=== PATIENT | male | born 1935 | race Caucasian/White ===

== ENCOUNTER 2020-06-16 21:05 | Emergency (ER) | payer MEDICARE, MEDICAID, SELFPAY ==
[2020-06-16] VITALS (33 sets, daily range): BP systolic 70–165; BP diastolic 48–111; PULSE 78–112; RESP 12–26; O2SAT 82–100; BMI 26.3
--- NOTE | 2020-06-16 21:07 | XR_ITS ---
WS: [id number] Exam: XR chest 1V portable [id number] Date/Time of Exam: 06/16/2020 9:19 PM Reason For Exam: Dyspnea No priors. Extensive areas of airspace and interstitial infiltrate noted throughout both lungs. Left-sided pleur al effusion. The heart is enlarged. The mediastinum and bony thorax are unremarkable. Monitoring lead s superimpose the chest. XR/XR chest 1V portable [id number] IMPRESSION: 1. Extensive interstitial and airspace infiltrates noted throughout both lungs. This most likely represents pneumonia. Superimposed CHF not totally excluded. 2. Small left-sided pleural effusion.
--- NOTE | 2020-06-16 21:09 | ECG_ITS ---
[facility] Test Date: 2020-06-16 Pat Name: DEE DEE CASTANO Department: Room: Gender: Male Audit Manager: : [id number] Requested By: Sharmin Ibrahim Order Number: [id number] Meek MD: CECILIA BHATIA Measurements Intervals [place] Rate: 101 P: 52 KS: 163 QRS: 85 QRSD: 103 T: 19 QT: 344 QTc: 446 Interpretive Statements SINUS TACHYCARDIA NONSPECIFIC ST & T-WAVE ABNORMALITY ABNORMAL RHYTHM ECG No previous ECG available for comparison Electronically Signed On 06-17-2020 21:05:01 CDT by CECILIA BHATIA [id number] f
--- NOTE | 2020-06-16 21:09 | W.ED.GENADLT ---
HPI - General Adult General: Chief complaint: Chest Pain Stated complaint: resp distress Time Seen by Provider: 06/16/20 21:07 Source: patient Mode of arrival: ambulatory Limitations: no limitations History of Present Illness: HPI narrative: Edvin is a 84-year-old male who brought in by EMS with report of shortness of breath. Patient received 5 mg of Versed in route and is a poor historian at this time. EMS reports that the patient complained of shortness of breath and upon their arrival there he had a pulse ox that was low and a heart rate that was fast. EMS felt that the heart rhythm was likely SVT but they were concerned as the morphology was wide-complex so the attempted chemical cardioversion with adenosine twice. First dose was 6 mg second dose was 12 mg. Because of no conversion and mild hypotension they cardioverted the patient. The patient was given 5 mg of Versed prior to cardioversion. Since then he has developed a sinus rhythm with improvement in his hypotension. Here the patient has audible wheezing and looks lethargic. The lethargy is believed to be from the Versed. Patient appears confused but follows commands and is cooperative and pleasant. Review of Systems General: Reports: ROS unobtainable due to medical condition (Previously medicated with Versed) [facility]: Medical History (Updated 06/17/20 @ 02:30 by Sharmin Benito) DM type 2 (diabetes mellitus, type 2) Physical Exam Const: COMMON NORMALS: alert EXAM LIMITATIONS: altered mental status GENERAL APPEARANCE: lethargic ORIENTATION/CONSCIOUSNESS: Yes lethargic HENMT: COMMON NORMALS: normocephalic, atraumatic, external ears normal, EAC's normal and Normal external nose present HEAD & SCALP: normal to inspection, normocephalic and atraumatic FACE & SINUS: normal facial exam and face symmetric NOSE: Normal external nose present and Normal nares present EXTERNAL EAR: Yes external ears normal EXTERNAL AUDITORY CANAL: EAC's normal MOUTH: Normal oral and palatal mucosa present, lip normal and tongue normal Eye: COMMON NORMALS: Equal, round and reactive pupils present and conjunctivae normal GENERAL EYE: appearance normal, both eyes and all related structures ALIGNMENT: Yes alignment normal PERIORBITAL: periorbital findings normal EYELID: eyelids normal CONJUNCTIVA: Yes conjunctivae normal SCLERA: sclerae normal PUPIL: Yes Equal, round and reactive pupils present Neck/C-Spine: COMMON NORMALS: full ROM, no lymphadenopathy, supple, no meningeal signs and no JVD GENERAL: Yes normal visual inspection and Yes trachea midline Chest: COMMONS NORMALS: normal inspection of the chest and normal palpation of entire chest wall Resp: EFFORT & INSPECTION: Yes Actively coughing AUSCULTATION: rales, rhonchi, wheezes and diminished lung sounds Cardio: COMMON NORMALS: no JVD, regular rhythm, S1 normal heart sound present and S2 normal heart sound present RATE: tachycardic RHYTHM: regular rhythm HEART SOUNDS: S1 normal heart sound present, S2 normal heart sound present, no click, no gallops, no murmurs and no rubs GI: COMMON NORMALS: Soft to palpation and No hepatosplenomegaly present PALPATION: Yes Soft to palpation, No Tenderness to palpation present (GI), No Guarding due to palpation present (GI), No Rigid due to palpation, Yes No hepatosplenomegaly present, No Hernia present, No Palpable mass present and No Pulsatile mass present : COMMON NORMALS: Yes no CVA tenderness BLADDER/KIDNEY EXAM: Yes no CVA tenderness Back/Pelvis: COMMON NORMALS: no CVA tenderness, thoracic and lumbar spine normal to inspection, no thoracic nor lumbar tenderness and thoraco-lumbar ROM normal Extremity: COMMON NORMALS: normal to inspection, full ROM, capillary refill normal, no joint enlargement, no clubbing, cyanosis or edema and no calf tenderness Neuro: COMMON NORMALS: CN's II-XII intact bilaterally, moves all extremities, no focal motor deficits and no sensory deficits noted SENSORIUM/ORIENTATION: Yes alert and Yes lethargic MENINGEAL SIGNS: Yes no meningeal signs SPEECH: speech normal Skin: COMMON NORMALS: no rashes or lesions noted, turgor normal, no jaundice, no petechiae and no mottling GENERAL SKIN EXAM: no rashes or lesions noted and turgor normal Procedures Central Line Placement Right Femoral: Time Out Performed: Yes (Indication was hypotension after intubation and vasopressors were utilized. Patient was intubated so consent cannot be obtained but was implied.) Patient Placed on Monitor/Pulse Ox: Yes MD Prep: mask, gown and gloves Central Line Prep: Povidone-Iodine 1%, Chlorhexidine scrub and sterile drapes applied Ultrasound Used for Placement: Yes (Used to locate vein and skin was marked. Ultrasound was not utilized dynamically but just for location of vein.) Central Line Lumen Inserted: triple Post Procedure: good blood return, all ports aspirated, flushed, capped and sterile dressing applied Patient Tolerated Procedure: well Complications: arterial puncture/cannulation Additional Comments: Once the needle accessed the vein there was dark nonpulsatile blood that slowly dribbled from the needle. Wire was fed through the vein with little resistance. Once the catheter was placed without difficulty I noticed persistent pressure of blood in the line. I had bedside ultrasound, and recheck placement and confirmed it was in the femoral artery. The line was immediately pulled and pressure was applied for 20 minutes. There was good pulse in both the DP and PT pulses of the right foot immediately after and 30 minutes after the line was pulled. Complication reviewed with both on-call surgery and cycle consultant interventional cardiology in both state nothing else is needed other than pressure for 20 minutes. Intubation Time out performed: Yes sedative: Etomidate Mg Given: 23 paralytic: Succinylcholine Mg Given: 125 Laryngoscope: fiber optic video scope ET Tube Size: 8 ET Tube Uncuffed: Yes Tube Secured Depth (cm): 27 Tube Secured Location: lips Tube Placement Confirmation: visualized tube passing through cords Patient Tolerated Procedure: well Intubation Complications: none Additional Comments: Chest x-ray confirmed good placement. Course Vital Signs: Vital signs: Vital Signs Pulse Rate 112 H 06/17/20 03:57 Respiratory Rate 16 06/17/20 03:57 Blood Pressure 109/59 06/17/20 03:57 Pulse Oximetry 94 06/17/20 03:57 MDM - General Adult MDM Narrative: Medical decision making narrative: The case was reviewed with Dr. Leonard who stated the patient is likely going to need a ventilator and we do not have the appropriate bed for a patient with COVID-19 to be on BiPAP. I reviewed the case with Dr. Lilly at the [facility] in [place], he agreed accept the patient in transfer. He agreed the patient would likely need intubation for safety when transferred. Patient was intubated without difficulty. His first blood gas post the patient revealed more so a metabolic acidosis but some element of respiratory acidosis. Ventilator changes were made repeat blood gas will be checked prior to the air ambulance service that is coming to pick him up. I did discuss with the patient the need for intubation he was agreeable. Lab Data: Labs: Lab Results 06/16/20 06/16/20 06/16/20 Range/Units 02:45 20:25 20:25 WBC (4.0-10.0) 10^3/ uL RBC (4.1-5.3) 10^6/u L Hgb (11.7-16.6) g/dL Hct (42.0-52.0) % MCV (80-94) fL MCH (28.0-34.0) pg MCHC (30.0-36.0) g/dL RDW (12.1-15.1) % Plt Count (130-400) 10^3/c mm MPV (7.4-10.4) fL Neut % (Auto) % Lymph % (Auto) % [place] % (Auto) % Eos % (Auto) % Baso % (Auto) % Neut # (Auto) (1.8-7.7) 10^3/u L Lymph # (Auto) (0.8-4.8) 10^3/u L [place] # (Auto) (0.2-0.9) 10^3/u L Eos # (Auto) (0.0-0.8) 10^3/u L Baso # (Auto) (0.0-0.1) 10^3/u L Nucleated RBC % (a uto) % Nucleated RBCs # /100WBC PT (12.1-14.9) SECO NDS INR (0.8-1.2) D-Dimer (0-0.59) ug/mIFE U Specimen Type Sample Site ABG pH (7.35-7.45) ABG pCO2 (35-45) mmHg ABG pO2 (80.0-100.0) mmH g ABG HCO3 (22-26) mmol/L ABG O2 Saturation ABG Base Excess (-2.0-2.0) mmol/ L Jarod Test A-a O2 Gradient (5-10) mmHg Hematocrit (42-52) % Hgb O2 Saturation (95-100) % Carboxyhemoglobin (0.4-20.1) %THgb Methemoglobin (0.4-1.5) % Total Hemoglobin (14-18) g/dL Ionized Calcium (1.1-1.4) mmol/L O2 Delivery Device O2 Liters/Min % FiO2 % PEEP cmH20 Burner Tender ID Sodium (136-145) mmol/L Potassium (3.5-5.1) mmol/L Chloride (98-107) mmol/L Carbon Dioxide (22-29) mmol/L Anion Gap (5-19) BUN (8-23) mg/dL Creatinine (0.7-1.2) mg/dL GFR Calculation Glucose (65-115) mg/dL Calculated Osmolal ity (285-295) mOsm/k g Lactic Acid (0.5-2.2) mmol/L Calcium (8.5-10.5) mg/dL Magnesium (1.7-2.3) mg/dL Total Bilirubin (0.15-1.2) mg/dL AST (0-40) U/L ALT (0-41) U/L Alkaline Phosphata se (40-130) IU/L Troponin T Baselin e (0-15) ng/L Troponin T 120 Min [place] 1294 H (0-15) ng/L Delta Troponin T Not Reportable NT-Pro-B Natriuret Pep (0-450) pg/mL Total Protein (6.6-8.7) g/dL Albumin (3.5-5.2) g/dL Globulin (1.3-4.6) g/dL Free T4 (0.82-1.77) ng/d L Urine Color (Yellow) Urine Appearance (CLEAR) Urine pH (5-7) Ur Specific Gravit y (1.005-1.030) Urine Protein (Negative) Urine Glucose (UA) (Normal) Urine Ketones (Negative) Urine Blood (Negative) Urine Nitrate (Negative) Urine Bilirubin (Negative) Urine Urobilinogen (Negative) mg/dL Ur Leukocyte Emilia ase (Negative) Urine RBC (0-2) /hpf Urine WBC (0-5) /hpf Ur Squamous Epith Cells (0-5) /hpf Amorphous Sediment Urine Bacteria (NONE) /hpf Hyaline Casts /lpf Fine Granular Cast s /lpf Coarse Granular Ca sts /lpf Influenza Type A A g Negative (Negative) Influenza Type B A g Negative (Negative) SARS-CoV-2 Ag (Rap id) Positive H (Negative) 06/16/20 06/16/20 06/16/20 Range/Units 21:11 21:11 21:11 WBC 11.6 H (4.0-10.0) 10^3/ uL RBC 4.27 (4.1-5.3) 10^6/u L Hgb 12.3 (11.7-16.6) g/dL Hct 39.2 L (42.0-52.0) % MCV 91.8 (80-94) fL MCH 28.8 (28.0-34.0) pg MCHC 31.4 (30.0-36.0) g/dL RDW 13.8 (12.1-15.1) % Plt Count 93 L (130-400) 10^3/c mm MPV 11.9 H (7.4-10.4) fL Neut % (Auto) 66.6 % Lymph % (Auto) 25.1 % [place] % (Auto) 5.1 % Eos % (Auto) 2.1 % Baso % (Auto) 0.5 % Neut # (Auto) 7.74 H (1.8-7.7) 10^3/u L Lymph # (Auto) 2.9 (0.8-4.8) 10^3/u L [place] # (Auto) 0.6 (0.2-0.9) 10^3/u L Eos # (Auto) 0.2 (0.0-0.8) 10^3/u L Baso # (Auto) 0.1 (0.0-0.1) 10^3/u L Nucleated RBC % (a uto) 0 % Nucleated RBCs # 0.0 /100WBC PT 14.10 (12.1-14.9) SECO NDS INR 1.06 (0.8-1.2) D-Dimer >= 20.00 H (0-0.59) ug/mIFE U Specimen Type Sample Site ABG pH (7.35-7.45) ABG pCO2 (35-45) mmHg ABG pO2 (80.0-100.0) mmH g ABG HCO3 (22-26) mmol/L ABG O2 Saturation ABG Base Excess (-2.0-2.0) mmol/ L Jarod Test A-a O2 Gradient (5-10) mmHg Hematocrit (42-52) % Hgb O2 Saturation (95-100) % Carboxyhemoglobin (0.4-20.1) %THgb Methemoglobin (0.4-1.5) % Total Hemoglobin (14-18) g/dL Ionized Calcium (1.1-1.4) mmol/L O2 Delivery Device O2 Liters/Min % FiO2 % PEEP cmH20 Burner Tender ID Sodium 137 (136-145) mmol/L Potassium 4.5 (3.5-5.1) mmol/L Chloride 101 (98-107) mmol/L Carbon Dioxide 19 L (22-29) mmol/L Anion Gap 21.5 H (5-19) BUN 29 H (8-23) mg/dL Creatinine 1.3 H (0.7-1.2) mg/dL GFR Calculation Not Reportable Glucose 342 H (65-115) mg/dL Calculated Osmolal ity 303 H (285-295) mOsm/k g Lactic Acid (0.5-2.2) mmol/L Calcium 9.5 (8.5-10.5) mg/dL Magnesium 2.1 (1.7-2.3) mg/dL Total Bilirubin 0.3 (0.15-1.2) mg/dL AST 38 (0-40) U/L ALT 38 (0-41) U/L Alkaline Phosphata se 107 (40-130) IU/L Troponin T Baselin e (0-15) ng/L Troponin T 120 Min [place] (0-15) ng/L Delta Troponin T NT-Pro-B Natriuret Pep 6262 H (0-450) pg/mL Total Protein 7.2 (6.6-8.7) g/dL Albumin 3.8 (3.5-5.2) g/dL Globulin 3.4 (1.3-4.6) g/dL Free T4 1.15 (0.82-1.77) ng/d L Urine Color (Yellow) Urine Appearance (CLEAR) Urine pH (5-7) Ur Specific Gravit y (1.005-1.030) Urine Protein (Negative) Urine Glucose (UA) (Normal) Urine Ketones (Negative) Urine Blood (Negative) Urine Nitrate (Negative) Urine Bilirubin (Negative) Urine Urobilinogen (Negative) mg/dL Ur Leukocyte Emilia ase (Negative) Urine RBC (0-2) /hpf Urine WBC (0-5) /hpf Ur Squamous Epith Cells (0-5) /hpf Amorphous Sediment Urine Bacteria (NONE) /hpf Hyaline Casts /lpf Fine Granular Cast s /lpf Coarse Granular Ca sts /lpf Influenza Type A A g (Negative) Influenza Type B A g (Negative) SARS-CoV-2 Ag (Rap id) (Negative) 06/16/20 06/16/20 06/16/20 Range/Units 21:11 21:17 21:54 WBC (4.0-10.0) 10^3/ uL RBC (4.1-5.3) 10^6/u L Hgb (11.7-16.6) g/dL Hct (42.0-52.0) % MCV (80-94) fL MCH (28.0-34.0) pg MCHC (30.0-36.0) g/dL RDW (12.1-15.1) % Plt Count (130-400) 10^3/c mm MPV (7.4-10.4) fL Neut % (Auto) % Lymph % (Auto) % [place] % (Auto) % Eos % (Auto) % Baso % (Auto) % Neut # (Auto) (1.8-7.7) 10^3/u L Lymph # (Auto) (0.8-4.8) 10^3/u L [place] # (Auto) (0.2-0.9) 10^3/u L Eos # (Auto) (0.0-0.8) 10^3/u L Baso # (Auto) (0.0-0.1) 10^3/u L Nucleated RBC % (a uto) % Nucleated RBCs # /100WBC PT (12.1-14.9) SECO NDS INR (0.8-1.2) D-Dimer (0-0.59) ug/mIFE U Specimen Type Arterial Sample Site Brachial, right ABG pH 7.37 (7.35-7.45) ABG pCO2 36.3 (35-45) mmHg ABG pO2 55.7 L (80.0-100.0) mmH g ABG HCO3 20.8 L (22-26) mmol/L ABG O2 Saturation 88.0 ABG Base Excess -4.1 L (-2.0-2.0) mmol/ L Jarod Test N/a A-a O2 Gradient 6.2 (5-10) mmHg Hematocrit 33.1 L (42-52) % Hgb O2 Saturation 84.5 L (95-100) % Carboxyhemoglobin 3.0 (0.4-20.1) %THgb Methemoglobin 1.0 (0.4-1.5) % Total Hemoglobin 10.8 L (14-18) g/dL Ionized Calcium 1.2 (1.1-1.4) mmol/L O2 Delivery Device Nrb O2 Liters/Min 15.0 % FiO2 % PEEP cmH20 Burner Tender ID [place] Sodium 138.0 (136-145) mmol/L Potassium 4.2 (3.5-5.1) mmol/L Chloride (98-107) mmol/L Carbon Dioxide (22-29) mmol/L Anion Gap (5-19) BUN (8-23) mg/dL Creatinine (0.7-1.2) mg/dL GFR Calculation Glucose 282.0 H (65-115) mg/dL Calculated Osmolal ity (285-295) mOsm/k g Lactic Acid 3.6 H (0.5-2.2) mmol/L Calcium (8.5-10.5) mg/dL Magnesium (1.7-2.3) mg/dL Total Bilirubin (0.15-1.2) mg/dL AST (0-40) U/L ALT (0-41) U/L Alkaline Phosphata se (40-130) IU/L Troponin T Baselin e 1066 H* (0-15) ng/L Troponin T 120 Min [place] (0-15) ng/L Delta Troponin T NT-Pro-B Natriuret Pep (0-450) pg/mL Total Protein (6.6-8.7) g/dL Albumin (3.5-5.2) g/dL Globulin (1.3-4.6) g/dL Free T4 (0.82-1.77) ng/d L Urine Color (Yellow) Urine Appearance (CLEAR) Urine pH (5-7) Ur Specific Gravit y (1.005-1.030) Urine Protein (Negative) Urine Glucose (UA) (Normal) Urine Ketones (Negative) Urine Blood (Negative) Urine Nitrate (Negative) Urine Bilirubin (Negative) Urine Urobilinogen (Negative) mg/dL Ur Leukocyte Emilia ase (Negative) Urine RBC (0-2) /hpf Urine WBC (0-5) /hpf Ur Squamous Epith Cells (0-5) /hpf Amorphous Sediment Urine Bacteria (NONE) /hpf Hyaline Casts /lpf Fine Granular Cast s /lpf Coarse Granular Ca sts /lpf Influenza Type A A g (Negative) Influenza Type B A g (Negative) SARS-CoV-2 Ag (Rap id) (Negative) 06/16/20 06/17/20 06/17/20 Range/Units 21:57 02:05 02:45 WBC (4.0-10.0) 10^3/ uL RBC (4.1-5.3) 10^6/u L Hgb (11.7-16.6) g/dL Hct (42.0-52.0) % MCV (80-94) fL MCH (28.0-34.0) pg MCHC (30.0-36.0) g/dL RDW (12.1-15.1) % Plt Count (130-400) 10^3/c mm MPV (7.4-10.4) fL Neut % (Auto) % Lymph % (Auto) % [place] % (Auto) % Eos % (Auto) % Baso % (Auto) % Neut # (Auto) (1.8-7.7) 10^3/u L Lymph # (Auto) (0.8-4.8) 10^3/u L [place] # (Auto) (0.2-0.9) 10^3/u L Eos # (Auto) (0.0-0.8) 10^3/u L Baso # (Auto) (0.0-0.1) 10^3/u L Nucleated RBC % (a uto) % Nucleated RBCs # /100WBC PT (12.1-14.9) SECO NDS INR (0.8-1.2) D-Dimer (0-0.59) ug/mIFE U Specimen Type Arterial Arterial Sample Site Radial, left Radial, right ABG pH 7.21 L 7.24 L (7.35-7.45) ABG pCO2 45.9 H 38.6 (35-45) mmHg ABG pO2 84.5 74.8 L (80.0-100.0) mmH g ABG HCO3 18.2 L 16.7 L (22-26) mmol/L ABG O2 Saturation ABG Base Excess -9.5 L -10.0 L (-2.0-2.0) mmol/ L Jarod Test Pos Pos A-a O2 Gradient (5-10) mmHg Hematocrit 34.0 L 34.9 L (42-52) % Hgb O2 Saturation (95-100) % Carboxyhemoglobin (0.4-20.1) %THgb Methemoglobin (0.4-1.5) % Total Hemoglobin (14-18) g/dL Ionized Calcium (1.1-1.4) mmol/L O2 Delivery Device Vent Vent O2 Liters/Min % FiO2 70.0 70.0 % PEEP 7.0 cmH20 Burner Tender ID ellpe ellpe Sodium (136-145) mmol/L Potassium (3.5-5.1) mmol/L Chloride (98-107) mmol/L Carbon Dioxide (22-29) mmol/L Anion Gap (5-19) BUN (8-23) mg/dL Creatinine (0.7-1.2) mg/dL GFR Calculation Glucose (65-115) mg/dL Calculated Osmolal ity (285-295) mOsm/k g Lactic Acid (0.5-2.2) mmol/L Calcium (8.5-10.5) mg/dL Magnesium (1.7-2.3) mg/dL Total Bilirubin (0.15-1.2) mg/dL AST (0-40) U/L ALT (0-41) U/L Alkaline Phosphata se (40-130) IU/L Troponin T Baselin e (0-15) ng/L Troponin T 120 Min [place] (0-15) ng/L Delta Troponin T NT-Pro-B Natriuret Pep (0-450) pg/mL Total Protein (6.6-8.7) g/dL Albumin (3.5-5.2) g/dL Globulin (1.3-4.6) g/dL Free T4 (0.82-1.77) ng/d L Urine Color Yellow (Yellow) Urine Appearance Clear (CLEAR) Urine pH 5 (5-7) Ur Specific Gravit y 1.025 (1.005-1.030) Urine Protein 1+ H (Negative) Urine Glucose (UA) 4+ H (Normal) Urine Ketones Negative (Negative) Urine Blood Neg (Negative) Urine Nitrate Negative (Negative) Urine Bilirubin Neg (Negative) Urine Urobilinogen Norm (Negative) mg/dL Ur Leukocyte Emilia ase Negative (Negative) Urine RBC 0-4 H (0-2) /hpf Urine WBC None (0-5) /hpf Ur Squamous Epith Cells 5-10 H (0-5) /hpf Amorphous Sediment Not Reportable Urine Bacteria Trace (NONE) /hpf Hyaline Casts 5-10 H /lpf Fine Granular Cast s 0-4 H /lpf Coarse Granular Ca sts 0-4 H /lpf Influenza Type A A g (Negative) Influenza Type B A g (Negative) SARS-CoV-2 Ag (Rap id) (Negative) Imaging Data^: CXR: Attestation: I personally reviewed and interpreted this imaging study as follows: My impression: Probable viral pneumonitis. CXR Post Intubation: Attestation: I personally reviewed and interpreted this imaging study as follows: My impression: ET tube with appropriate placement. NG tube with appropriate placement. EKG Data^: EKG 1: Attestation: I personally reviewed and interpreted this EKG as follows: EKG interpretation date: 06/16/20 EKG interpretation time: 21:07 Interpretation: Normal sinus rhythm 101 beats a minute, all axis, no blocks, normal intervals, ST segment depression in woman overall to, remember 3, aVF, V3 through V6. No old for comparison. Computer generated interpretation: Chest CTA 06/16/20 23:02 IMPRESSION: 1. Negative for pulmonary embolus 2. Moderate to large bilateral pleural effusions. 3. Bilateral airspace opacities likely reflecting an infectious process. 4. Centrilobular emphysematous changes. 5. Small pericardial effusion measuring up to 6.4 mm in thickness. 6. Coronary artery atherosclerotic calcifications. 7. Small amount of ascites in the upper abdomen. 8. Infrarenal saccular infrared abdominal aortic aneurysm measuring up 2.9 cm without rupture. Radiation Dose CTDIVOL = (mGy): DLP = 702.29 (mGy-cm) EKG 2: Attestation: I personally reviewed and interpreted this EKG as follows: EKG interpretation date: 06/17/20 EKG interpretation time: 23:33 Interpretation: Sinus tachycardia 101 beats a minute, ST segment depression in remote numerals 2, remote 3 and aVF along with V3 through V6. Computer generated interpretation: Chest CTA 06/16/20 23:02 IMPRESSION: 1. Negative for pulmonary embolus 2. Moderate to large bilateral pleural effusions. 3. Bilateral airspace opacities likely reflecting an infectious process. 4. Centrilobular emphysematous changes. 5. Small pericardial effusion measuring up to 6.4 mm in thickness. 6. Coronary artery atherosclerotic calcifications. 7. Small amount of ascites in the upper abdomen. 8. Infrarenal saccular infrared abdominal aortic aneurysm measuring up 2.9 cm without rupture. Radiation Dose CTDIVOL = (mGy): DLP = 702.29 (mGy-cm) Discharge Plan Discharge Patient Disposition: Xfer Short-Term Hosp Clinical Impression: Viral pneumonitis, COVID-19 virus infection Sepsis Qualifiers: Sepsis type: sepsis due to unspecified organism Sepsis acute organ dysfunction status: unspecified Qualified Code(s): A41.9 - Sepsis, unspecified organism Condition: Stable Discharge Date/Time: 06/17/20 03:28 Coding Level of Care Code ED Platform Material Handler Manager for Chg Fwd Exam Comprehensive
[2020-06-16] MEDS: ondansetron 2 mg/ML SDV 2 mL 4 MG IVP (21:16)
[2020-06-16] MEDS: sodium chloride 0.9% 1,000 ML 100 ML IV (21:16)
[2020-06-16 21:17] LABS: ABG PCO2 36.3 mmHg (35-45); ABG PH Result 7.37 (7.35-7.45); Alveolar-Arterial Oxygen Gradi 6.2 mmHg (5-10); Arterial Blood Gas Hematocrit 33.1 % (42-52); Base Excess ABG -4.1 mmol/L (-2.0-2.0); Blood Gas Sample Site Brachial, right; Blood Gas Sample Type Arterial; HCO3 ABG 20.8 mmol/L (22-26); HGB O2 Sat 84.5 % (95-100); Ionized Calcium Level - ABG 1.2 mmol/L (1.1-1.4); Oxygen Device NRB; PO2 ABG 55.7 mmHg (80.0-100.0); Potassium Level - ABG 4.2 mmol/L (3.5-5.0); Total Hemoglobin 10.8 g/dL (14-18)
[2020-06-16] MEDS: dexamethasone 10 mg/mL INJ IVP (21:32)
--- NOTE | 2020-06-16 21:32 | PC.NURSE ---
xray in room
[2020-06-16 21:50] LABS: Basophils # 0.1 10^3/uL (0.0-0.1); Basophils % 0.5 %; Eosinophils # 0.2 10^3/uL (0.0-0.8); Eosinophils % 2.1 %; Hematocrit 39.2 % (42.0-52.0); Hemoglobin 12.3 g/dL (11.7-16.6); Lymphocytes # 2.9 10^3/uL (0.8-4.8); Lymphocytes % 25.1 %; Mean Corpuscular HGB Conc 31.4 g/dL (30.0-36.0); Mean Corpuscular Hemoglobin 28.8 pg (28.0-34.0); Mean Corpuscular Volume 91.8 fL (80-94); Mean Platelet Volume 11.9 fL (7.4-10.4); Monocytes # 0.6 10^3/uL (0.2-0.9); Monocytes % 5.1 %; Neutrophils # 7.74 10^3/uL (1.8-7.7); Neutrophils % 66.6 %; Nucleated Red Blood Cells % 0 %; Platelet Count 93 10^3/cmm (130-400); Red Blood Count 4.27 10^6/uL (4.1-5.3); Red Cell Distribution Width 13.8 % (12.1-15.1); White Blood Count 11.6 10^3/uL (4.0-10.0)
[2020-06-16] MEDS: nitroglycerin 1 gm/inch oint Pkt 1 INCH TOPICAL (21:57)
[2020-06-16 22:01] LABS: INR 1.06 (0.8-1.2)
[2020-06-16 22:15] LABS: Add Urine Microscopic? YES; Bilirubin Urine Neg (Negative); Blood Urine Neg (Negative); Glucose Urine UA 4+ (Normal); Ketones Urine Negative (Negative); Leukocyte Esterase Urine Negative (Negative); Nitrate Urine Negative (Negative); Protein Urine 1+ (Negative); Specific Gravity, Urine 1.025 (1.005-1.030); Urine Appearance Clear (CLEAR); Urine Color Yellow (Yellow); Urobilinogen Urine Norm (Negative); pH Urine 5 (5-7)
[2020-06-16 22:15] LABS: Alanine Aminotransferase 38 U/L (0-41); Albumin Level 3.8 g/dL (3.5-5.2); Alkaline Phosphatase 107 IU/L (40-130); Anion Gap 21.5 (5-19); Aspartate Amino Transferase 38 U/L (0-40); Blood Urea Nitrogen 29 mg/dL (8-23); Calcium 9.5 mg/dL (8.5-10.5); Carbon Dioxide 19 mmol/L (22-29); Chloride 101 mmol/L (98-107); Free T4 Free Thyroxine 1.15 ng/dL (0.82-1.77); Globulin 3.4 g/dL (1.3-4.6); Glucose 342 mg/dL (65-115); Magnesium 2.1 mg/dL (1.7-2.3); NT Pro B Type Natriuretic Pept 6262 pg/mL (0-450); Osmolality Calculated 303 mOsm/kg (285-295); Potassium 4.5 mmol/L (3.5-5.1); Sodium 137 mmol/L (136-145); Total Bilirubin 0.3 mg/dL (0.15-1.2); Total Protein 7.2 g/dL (6.6-8.7)
[2020-06-16 22:16] LABS: Fine Granular Casts Urine 0-4 /lpf
[2020-06-16 22:26] LABS: SARS Covid-2 Antigen Positive (Negative)
[2020-06-16 22:27] LABS: Influenza A by IFA Negative (Negative); Influenza B by IFA Negative (Negative)
[2020-06-16 22:28] LABS: Troponin(5th) Baseline 1066 ng/L (0-15)
[2020-06-16 22:29] LABS: Lactic Sepsis W/Reflex 3.6 mmol/L (0.5-2.2)
[2020-06-16 22:32] LABS: D Dimer >= 20.00 ug/mIFEU (0-0.59)
[2020-06-16 22:37] LABS: Coarse Granular Casts Urine 0-4 /lpf
[2020-06-16 22:38] LABS: Add Urine Culture? No; Bacteria Urine TRACE /hpf; RBC Urine 0-4 /hpf (0-2)
--- NOTE | 2020-06-16 23:02 | CTR_ITS ---
PROCEDURE INFORMATION: Exam: CT Angiography Chest With Contrast Exam date and time: 06/16/2020 11:18 PM Age: 84 years old Clinical indication: Abnormal findings; Abnormal diagnostic tests; Elevated d-dimer; Shortness of breath; Patient HX: Covid+, resp distress, on bipap; Additional info: Dyspnea, positive d-dimer TECHNIQUE: Imaging protocol: Computed tomographic angiography of the chest with intravenous contrast. 3D rendering (Not supervised by radiologist): MIP and/or 3D reconstructed images were created by the technologist. Radiation optimization: All CT scans at this facility use at least one of these dose optimization techniques: automated exposure control; mA and/or kV adjustment per patient size (includes targeted exams where dose is matched to clinical indication); or iterative reconstruction. Contrast material: VISI; Contrast volume: 90 ml; Contrast route: INTRAVENOUS (IV); COMPARISON: CR XR chest 1V portable [id number] 06/16/2020 9:21 PM RADIATION DOSE METRICS: Total DLP (mGy-cm): 702.29 FINDINGS: Pulmonary arteries: Normal. No pulmonary emboli. Aorta: Infrarenal saccular infrared abdominal aortic aneurysm measuring up 2.9 cm without rupture. Lungs: Bilateral airspace opacities likely reflecting an infectious process. Centrilobular emphysematous changes. Pleural space: Moderate to large bilateral pleural effusions. Heart: Small pericardial effusion measuring up to 6.4 mm in thickness. Coronary artery atherosclerotic calcifications. Lymph nodes: Unremarkable. No enlarged lymph nodes. Intraperitoneal space: Small amount of ascites in the upper abdomen. Bones/joints: Unremarkable. No acute fracture. Soft tissues: Unremarkable. CT/CT angio chest PE protcl [id number] IMPRESSION: 1. Negative for pulmonary embolus 2. Moderate to large bilateral pleural effusions. 3. Bilateral airspace opacities likely reflecting an infectious process. 4. Centrilobular emphysematous changes. 5. Small pericardial effusion measuring up to 6.4 mm in thickness. 6. Coronary artery atherosclerotic calcifications. 7. Small amount of ascites in the upper abdomen. 8. Infrarenal saccular infrared abdominal aortic aneurysm measuring up 2.9 cm without rupture. Radiation Dose CTDIVOL = (mGy): DLP = 702.29 (mGy-cm)
--- NOTE | 2020-06-16 23:09 | ECG_ITS ---
[facility] Test Date: 2020-06-16 Pat Name: DEE DEE CASTANO Department: Room: Gender: Male [employer]: : 1935 Requested By: Sharmin Ibrahim Order Number: [id number] Meek MD: CECILIA BHATIA Measurements Intervals [place] Rate: 101 P: 60 TN: 172 QRS: 73 QRSD: 113 T: -37 QT: 363 QTc: 471 Interpretive Statements SINUS TACHYCARDIA WITH OCCASIONAL VENTRICULAR PREMATURE COMPLEXES WITH OCCASIONAL SUPRAVENTRICULAR PREMATURE COMPLEXES MODERATE INTRAVENTRICULAR CONDUCTION DELAY [110+ ms QRS DURATION] NONSPECIFIC ST & T-WAVE ABNORMALITY Compared to ECG 06/16/2020 21:07:02 Ventricular premature complex(es) now present Intraventricular conduction delay now present T-wave abnormality still present Electronically Signed On 06-17-2020 21:06:31 CDT by CECILIA BHATIA [email or web address] Brake Cablescleveland [id number]
[2020-06-16] MEDS: FUROsemide 10 mg/mL SDV 4mL 40 MG IVP (23:13)
[2020-06-17] VITALS (39 sets, daily range): BP systolic 69–165; BP diastolic 38–110; PULSE 91–120; RESP 12–16; O2SAT 80–100
[2020-06-17] MEDS: iodixanol 320 mg/mL 100mL Btl IV (00:23)
--- NOTE | 2020-06-17 00:40 | XR_ITS ---
WS: [id number] Exam: XR chest 1V portable [id number] Date/Time of Exam: 06/17/2020 1:07 AM Reason For Exam: Post intubation Comparison 06/16/2020. Widespread pulmonary infiltrates are noted throughout both lungs showing littl e change since the prior study. Left basal pleural effusion has resolved. The lungs remain fully infl ated. An ET tube has been placed and ends about 4 cm above the cari. An enteric tube has been place d and enters the stomach but the tip is not visible. Monitoring leads superimpose the chest. XR/XR chest 1V portable [id number] IMPRESSION: 1. Widespread infiltrates throughout both lungs showing little change. 2. Resolved left-sided pleural effusion since previous study. 3. ET tube and enteric tube both appear to be in satisfactory position.
[2020-06-17] MEDS: sodium chloride 0.9% 1,000 ML 999 ML IV (01:09)
[2020-06-17] MEDS: succinylcholine 20 mg/mL SDV 10mL 125 MG IVP (01:14)
[2020-06-17] MEDS: LORazepam 2 mg/mL INJ 1 mL IVP (01:15)
[2020-06-17] MEDS: fentaNYL 50 mcg/mL INJ 2mL 100 MCG IVP (01:15)
[2020-06-17] MEDS: vecuronium 10 mg SDV IVP (01:16)
[2020-06-17] MEDS: propofol 1,000 MG/100 ML INJ 2.4 MG IV (01:27)
[2020-06-17 02:14] LABS: ABG PCO2 45.9 mmHg (35-45); ABG PH Result 7.21 (7.35-7.45); Base Excess ABG -9.5 mmol/L (-2.0-2.0); Blood Gas Allen Test Pos; Blood Gas Sample Site Radial, left; Blood Gas Sample Type Arterial; HCO3 ABG 18.2 mmol/L (22-26); Oxygen Device VENT; PO2 ABG 84.5 mmHg (80.0-100.0)
[2020-06-17 02:53] LABS: ABG PCO2 38.6 mmHg (35-45); ABG PH Result 7.24 (7.35-7.45); Arterial Blood Gas Hematocrit 34.9 % (42-52); Blood Gas Allen Test Pos; Blood Gas Sample Site Radial, right; Blood Gas Sample Type Arterial; HCO3 ABG 16.7 mmol/L (22-26); Oxygen Device VENT; PO2 ABG 74.8 mmHg (80.0-100.0)
[2020-06-17 03:30] LABS: Troponin 5 2HR 1294 ng/L (0-15)
--- NOTE | 2020-06-17 03:41 | PC.NURSE ---
PATIENT PEDAL PULSES PRESENT AND STRONG AT 0148 IN RIGHT FOOT PRIOR TO CENTRAL LINE INSERTION.
--- NOTE | 2020-06-17 03:42 | PC.NURSE ---
PATIENT CENTRAL LINE REMOVED AT 0219 AND PRESSURE HELD ON RIGHT GROIN FOR 20 MINUTES BY NURSE. PATIENT PEDAL PULSES IN RIGHT FOOT PRESENT AND GOOD AFTER PRESSURE HELD FOR 20 MINUTES AT 0239
--- NOTE | 2020-06-17 03:43 | PC.NURSE ---
PATIENT RIGHT PEDAL PULSES GOOD AND STRONG PRIOR TO TRANSFER AT 0320
--- NOTE | 2020-06-17 03:53 | PC.NURSE ---
WASTED 74MLS OF IV FENTANYL WITH DIANA ALMONTE. IV FENTANYL WAS LEFT BY SURVIVAL FLIGHT IN LIEU OF ALTERNATIVE SEDATION MEDICATION
--- NOTE | 2020-06-17 03:53 | PC.NURSE ---
Wasted 74ml Fentanyl with Brownyn.
[2020-06-17] MEDS: ipratropium-albuterol 3 mL Neb 9 ML INHALATION (09:09)
== END 2020-06-17 03:28 | disposition short-term general hospital (02) ==
PROVIDERS: Emergency Provider Emergency Medicine
DX: A41.89 Other specified sepsis (principal); U07.1 COVID-19; J12.89 Other viral pneumonia; R06.00 Dyspnea, unspecified
CPT/HCPCS: 12345; 31500; 36556; 36600; 51702; 71045; 71275; 80051; 80053; 81001; 82330; 82803; 82805; 83605; 83735; 83880; 84439; 84484; 85025; 85378; 85610; 87040; 87426; 87804; 93005; 94002; 94640; 94660; 94799; 96365; 96366; 96367; 96368; 96375; 99285; 99291; C1751; J0330; J1100; J1940; J2060; J2405; J2704; J3010; J3490; J7030; J7611; Q9967